=== PATIENT | female | born 1990 | race Caucasian/White ===

== ENCOUNTER 2016-08-19 11:32 | Emergency (ER) | payer BC ==
--- NOTE | ~2016-08-19 | CR126 ---
STS. [facility] A Service of [facility] & [facility] RADIOLOGY TEXT RESULTS PATIENT: JOSEPH FABIAN LOCATION: SED : 88 UNIT #: [id number] AGE: [address]: DEE RODRIGUEZ SEX: F ORDER DR: [id number] [address] [address] [id number] E MR#: [id number] Acc #: [id number] NAME: JOSEPH FABIAN : 1990 SEX: F STUDY DATE/TIME: 08/19/2016 12:12 UNIT: SED ROOM: STUDY DESCRIPTION: CR Foot Complete Min 3 View Lt Attending Physician: Dee Rodriguez Aprn Referring Physician: Dee Rodriguez Aprn Ordering Physician: Dee Rodriguez Aprn Primary Care Physician: Bettie Hernandez M.D. MEDICAL IMAGING REPORT This report is preliminary unless electronic signature is present. EXAM Left foot 3 views 08/19/2016 1212 hours CLINICAL HISTORY 25-year-old woman with foot pain while walking for 1 week. Pain across metatarsals and arch of foot. COMPARISON None. FINDINGS AP, lateral and oblique views demonstrate normal bone density. There is no fracture, dislocation, or degenerative change. There is spurring at the Achilles insertion on the calcaneus. No plantar spurring. IMPRESSION Negative left foot. Dictated by... Veena Mendoza M.D. THIS IS AN ELECTRONICALLY VERIFIED REPORT Veena Mendoza M.D. at 08/19/2016 2:26 PM JS/austyn TD: 08/19/2016 12:43 JOB #: [id number] MEDICAL IMAGING REPORT Page 1 of 1
[~2016-08-19 11:32] MED LIST: BACTRIM DS TABL1 TA1 PO; BIRTH CONTROL PILL PO; CORTISPORIN-TC10 ML OT; DICLOFENAC PO; ELIMITE60 GM TOP; KEFLEX500 MG PO; MACROBID100 MG PO; MOTRIN600 MG; MUCINEX100 MG/BOX PO; NAPROXEN PO; NO MEDICATIONS; PERCOCET PO; ROBITUSSIN15 MG/5 ML PO; SILVADENE TOP; VICODIN 5/1 TAB 5/50 PO
== END 2016-08-19 13:06 | disposition home or self-care (01) ==
LOC: SED 11:32
DX: S96.912A Strain of unspecified muscle and tendon at ankle and foot level, left foot, initial encounter (principal); Y93.01 Activity, walking, marching and hiking
CPT/HCPCS: 29540; 73630; 99283

== ENCOUNTER 2016-10-14 12:53 | Emergency (ER) | payer BC | END 2016-10-14 13:15 | disposition home or self-care (01) | LOC: SED 12:53 | DX: J06.9 Acute upper respiratory infection, unspecified (principal) | CPT/HCPCS: 99282 ==